=== PATIENT | female | born 1985 | race African-American/Black ===

== ENCOUNTER 2018-06-15 18:29 | Emergency (ER) | payer OTHER ==
[2018-06-15 19:51] LABS: Urine Blood 1+ (NEG); Urine Glucose NEGATIVE (NEG); Urine Protein TRACE (NEG); Urine Specific Gravity >1.030 (1.005-1.030)
[2018-06-15] MEDS ORDERED: FLUCONAZOLE 100 MG TAB ONE (19:59)
[2018-06-15] MEDS ORDERED: AZITHROMYCIN 250 MG TAB ONE (19:59)
[2018-06-15] MEDS ORDERED: CEFTRIAXONE 250 MG/VIAL ONE (19:59)
--- NOTE | 2018-06-15 20:05 | EDPHYS ---
Physician Documentation [facility] Name: Najma Goel Age: 32 yrs Sex: Female : 1985 Arrival Date: 06/15/2018 Time: 18:33 Bed 17 Private MD: out of town, doctor ED Physician Obdulio Gutierrez HPI: 06/15 18:57 This 32 yrs old Black Female presents to ER via Ambulatory with complaints of Women jmm problem. 18:57 The patient presents with pelvic pain. Onset: The symptoms/episode began/occurred jmm gradually, 2 day(s) ago. Modifying factors: The symptoms are alleviated by aloa vera. Associated signs and symptoms: Pertinent positives: dysuria, discharge. This is a 32 year old female that presents to the ED with white discharge beginning approx 2 days ago. Patient states recently having unprotected intercourse with a new partner recently. . 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 - Social history:: Smoking status: Patient uses tobacco products, smokes one-half pack cigarettes per day. - Ebola Screening: : Patient negative for fever greater than or equal to 101.5 degrees Fahrenheit, and additional compatible Ebola Virus Disease symptoms Patient denies exposure to infectious person Patient denies travel to an Ebola-affected area in the 21 days before illness onset No symptoms or risks identified at this time. ROS: 18:57 Constitutional: Negative for fever, chills, and weight loss, Eyes: Negative for injury, jmm pain, redness, and discharge, Cardiovascular: Negative for chest pain, palpitations, and edema, Respiratory: Negative for shortness of breath, cough, wheezing, and pleuritic chest pain. 18:57 Skin: Negative for injury, rash, and discoloration, Neuro: Negative for headache, weakness, numbness, tingling, and seizure. 18:57 : Positive for discharge. 18:57 All other systems are negative. Exam: 18:57 Head/Face: atraumatic. Eyes: EOMI, no conjunctival erythema appreciated ENT: Moist jmm Mucus Membranes Neck: Trachea midline, Supple Chest/axilla: Normal chest wall appearance and motion. Cardiovascular: Regular rate and rhythm. No edema appreciated Respiratory: Normal respirations, no respiratory distress appreciated Abdomen/GI: Non distended, soft Back: Normal ROM 18:57 Constitutional: The patient appears in no acute distress, alert, awake. 18:57 : CVA tenderness, is absent, Pelvic Exam: External exam: is normal, Speculum exam: no cervicitis, os that is closed, bimanual exam reveals normal findings, discharge, white, the nurse was present for the exam. 18:57 Skin: Appearance: Color: normal in color. 18:57 Neuro: Orientation: is normal, Mentation: is normal, Memory: is normal. 18:57 Psych: Behavior/mood is pleasant, cooperative. Vital Signs: 18:43 BP 123 / 87; Pulse 114; Resp 19; Temp 97.8; Pulse Ox 100% on R/A; Weight 140.61 kg; aj Height 5 ft. 2 in. (157.48 cm); 19:50 BP 120 / 70; Pulse 90; Resp 18; Pulse Ox 100% on R/A; ea 20:10 BP 123 / 78; Pulse 86; Resp 18; Temp 98.2(O); Pulse Ox 99% on R/A; ea 18:43 Body Mass Index 56.70 (140.61 kg, 157.48 cm) aj MDM: 19:14 Patient medically screened. [facility] 20:04 Data reviewed: vital signs, nurses notes. Counseling: I had a detailed discussion with [facility] the patient and/or guardian regarding: the historical points, exam findings, and any diagnostic results supporting the discharge/admit diagnosis, lab results, the need for outpatient follow up, to return to the emergency department if symptoms worsen or persist or if there are any questions or concerns that arise at home. 06/15 18:57 Order name: Wet Prep [facility] 06/15 18:57 Order name: GC (GONORR/CHLAMYDIA) Probe [facility] 06/15 19:02 Order name: Urine Dipstick--Ancillary (enter results); Complete Time: 19:59 eb 06/15 19:02 Order name: Urine --Ancillary (enter results); Complete Time: 19:59 eb 06/15 18:57 Order name: Pelvic Exam Setup; Complete Time: 19:06 [facility] Administered Medications: 20:03 Drug: DiFLUcan 150 mg Route: PO; ea 20:20 Follow up: Response: No adverse reaction ea 20:03 Drug: Rocephin (cefTRIAXone) 250 mg Route: IM; Site: left gluteus; ea 20:20 Follow up: Response: No adverse reaction ea 20:03 Drug: AZITHromycin 1 grams Route: PO; ea 20:20 Follow up: Response: No adverse reaction ea Disposition: 06/15/18 20:05 Discharged to Home. Impression: Candidiasis of vulva and vagina. - Condition is Stable. - Discharge Instructions: Vaginal Yeast Infection, Adult. - Prescriptions for Tylenol- Codeine #3 300-30 mg Oral Tablet - take 1 tablet by ORAL route every 6 hours As needed; 6 tablet. - Medication Reconciliation Form, Thank You Letter, Antibiotic Education, Prescription Opioid Use form. - Follow up: Private Physician; When: 2 - 3 days; Reason: Recheck today's complaints, Continuance of care, Re-evaluation by your physician. Addendum: 06/21/2018 07:45 Co-signature as Attending Physician, Obdulio Gutierrez MD. r n Signatures: Dispatcher [employer] EDJudy Dodson RN RN Nikko Gudino PA PA Obdulio Joshi MD MD rn Antunez, Elena, RN RN ea Corrections: (The following items were deleted from the chart) 06/15 20:22 20:05 06/15/2018 20:05 Discharged to Home. Impression: Candidiasis of vulva and vagina. ea Condition is Stable. Forms are Medication Reconciliation Form, Thank You Letter, Antibiotic Education, Prescription Opioid Use. Follow up: Private Physician; When: 2 - 3 days; Reason: Recheck today's complaints, Continuance of care, Re-evaluation by your physician. [facility]
--- NOTE | 2018-06-15 20:05 | ER ---
Nurse's Notes [facility] Name: Najma Goel Age: 32 yrs Sex: Female : 1985 Arrival Date: 06/15/2018 Time: 18:33 Bed 17 Private MD: out of town, doctor Diagnosis: Candidiasis of vulva and vagina Presentation: 06/15 18:42 Presenting complaint: Patient states: Nausea and vaginal itching with white discharge aj for 2 days. Transition of care: patient was not received from another setting of care. Onset of symptoms was June 13, 2018. Risk Assessment: Do you want to hurt yourself or someone else? Patient reports no desire to harm self or others. Initial Sepsis Screen: Does the patient meet any 2 criteria? No. Patient's initial sepsis screen is negative. Does the patient have a suspected source of infection? No. Patient's initial sepsis screen is negative. Care prior to arrival: None. 18:42 Method Of Arrival: Ambulatory aj 18:42 Acuity: WILD 3 aj Triage Assessment: 18:43 General: Appears in no apparent distress. comfortable, Behavior is calm, cooperative, aj appropriate for age. Pain: Denies pain. Neuro: Level of Consciousness is awake, alert, obeys commands, Oriented to person, place, time, situation, Appropriate for age. Respiratory: Airway is patent Respiratory effort is even, unlabored, Respiratory pattern is regular, symmetrical. GI: Reports nausea. : Reports discharge, white. Derm: Skin is intact, is healthy with good turgor, Skin is pink, warm \T\ dry. normal. 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 - Social history:: Smoking status: Patient uses tobacco products, smokes one-half pack cigarettes per day. - Ebola Screening: : Patient negative for fever greater than or equal to 101.5 degrees Fahrenheit, and additional compatible Ebola Virus Disease symptoms Patient denies exposure to infectious person Patient denies travel to an Ebola-affected area in the 21 days before illness onset No symptoms or risks identified at this time. Screenin:36 Abuse screen: Denies threats or abuse. Nutritional screening: No deficits noted. ea Tuberculosis screening: No symptoms or risk factors identified. Fall Risk None identified. Assessment: 19:21 General: Appears in no apparent distress. Behavior is calm, cooperative, appropriate ea for age. Pain: Denies pain. Neuro: Level of Consciousness is awake, alert, obeys commands, Oriented to person, place, time, situation. Cardiovascular: Patient's skin is warm and dry. Respiratory: Airway is patent Respiratory effort is even, unlabored, Respiratory pattern is regular, symmetrical. GI: Bowel sounds present X 4 quads. : Reports vaginal itching, vaginal discomfort. Derm: Skin is pink, warm \T\ dry. Musculoskeletal: Circulation, motion, and sensation intact. 20:19 Reassessment: Patient and/or family updated on plan of care and expected duration. Pain ea level reassessed. Patient is alert, oriented x 3, equal unlabored respirations, skin warm/dry/pink. Discharge instructions given to patient, verbalized the understanding of instructions. Vital Signs: 18:43 BP 123 / 87; Pulse 114; Resp 19; Temp 97.8; Pulse Ox 100% on R/A; Weight 140.61 kg; aj Height 5 ft. 2 in. (157.48 cm); 19:50 BP 120 / 70; Pulse 90; Resp 18; Pulse Ox 100% on R/A; ea 20:10 BP 123 / 78; Pulse 86; Resp 18; Temp 98.2(O); Pulse Ox 99% on R/A; ea 18:43 Body Mass Index 56.70 (140.61 kg, 157.48 cm) ED Course: 18:33 Patient arrived in ED. mr 18:34 out of town, doctor is Private Physician. mr 18:43 Triage completed. aj 18:43 Arm band placed on right wrist. Patient placed in an exam room. aj 18:48 Nikko Zuñiga PA is PHCP. [facility] 18:48 Obdulio Gutierrez MD is Attending Physician. panfilo 19:15 Patient has correct armband on for positive identification. Bed in low position. Call ea light in reach. Side rails up X2. 19:21 Rosi Perez, BELKYS is Primary Nurse. ea 19:45 Assist provider with pelvic exam: Set up pelvic tray. Performed by Nikko MACEDO ea Specimens sent to lab. Patient tolerated well. 20:20 Patient did not have IV access during this emergency room visit. ea Administered Medications: 20:03 Drug: DiFLUcan 150 mg Route: PO; ea 20:20 Follow up: Response: No adverse reaction ea 20:03 Drug: Rocephin (cefTRIAXone) 250 mg Route: IM; Site: left gluteus; ea 20:20 Follow up: Response: No adverse reaction ea 20:03 Drug: AZITHromycin 1 grams Route: PO; ea 20:20 Follow up: Response: No adverse reaction ea Outcome: 20:05 Discharge ordered by MD. porter 20:19 Discharged to home ambulatory. veronica 20:19 Condition: improved 20:19 Discharge instructions given to patient, Instructed on discharge instructions, follow up and referral plans. medication usage, Demonstrated understanding of instructions, follow-up care, Prescriptions given X 1. 20:22 Patient left the ED. ea Signatures: Judy Humphreys, Nikko Webb RN, PA PA jmm Ancelmo Rosi Hernandes RN BELKYS martin
[2018-06-15 20:36] VITALS: BP 123/78; TEMP 98.2; O2SAT 99
[2018-06-19 18:30] LABS: C.trachomatis RNA,TMA Not Detected (Not Detected)
== END 2018-06-15 20:22 | disposition home or self-care (01) ==
LOC: ER 18:29
DX: B37.3 Candidiasis of vulva and vagina (principal); F17.210 Nicotine dependence, cigarettes, uncomplicated
CPT/HCPCS: 81003; 81025; 87210; 87490; 87590; 96372; 99284; J0696